=== PATIENT | male | born 1970 | race Caucasian/White ===

== ENCOUNTER 2018-10-18 06:46 | Emergency (ER) | payer SELFPAY ==
--- NOTE | 2019-04-17 10:56 | RT.EKG_ITS ---
APPROVED REPORT test <Conclusion> Sinus rhythm...normal P axis, V-rate 50- 99 Ventricular premature complex...V complex w/ short R-R interval Borderline right axis deviation...QRS axis ( 90, 99)
== END 2018-10-18 07:57 | disposition other institution (70) ==
LOC: ER 07:55
PROVIDERS: PCP Family Medicine
DX: R69 Illness, unspecified (principal)

== ENCOUNTER → 2020-02-29 15:38 | Outpatient (CLI) | payer OTHER, SELFPAY | LOC: PRC 04-11 07:42 → SUR 08-14 12:44 | PROVIDERS: PCP Family Medicine | DX: T71.192A Asphyxiation due to mechanical threat to breathing due to other causes, intentional self-harm, initial encounter (principal) | CPT/HCPCS: 31500; 80053 ==

== ENCOUNTER 2020-06-11 19:38 | Outpatient (CLI) | payer SELFPAY ==
--- NOTE | 2020-12-27 | DI.US_ITS ---
APPROVED REPORT EXAM: Comprehensive 2D, Doppler, and color-flow Echocardiogram Conclusion testing seal Wall motion
== END 2020-06-11 19:40 ==
LOC: DI 19:38
PROVIDERS: PCP Family Medicine
DX: R69 Illness, unspecified (principal)

== ENCOUNTER 2020-07-01 02:08 | Outpatient (CLI) | payer MEDICARE, SELFPAY ==
--- NOTE | 2020-07-16 | DI.MAMMO_ITS ---
EXAM: MG MAMMO DIAGNOSTIC UNI CLINICAL HISTORY: TEST FOR TECH id. TECHNIQUE: Unilateral spot mammographic images were obtained with 3D [employer] and util izing computer aided detection (CAD). COMPARISON: Prior mammograms dating back to , the most recent being . FINDINGS: TEST TEST IMPRESSION: No radiographic evidence of malignancy Appropriate follow-up is . BI-RADS Category 2 - Benign Findings Breast Density - Category A - Almost entirely fatty Breast density Category C or D implies that the patient has dense breast tissue. Dense breast tissue can make it harder to find cancer on a mammogram. Dense breast tissue is also associated with an incr eased risk of breast cancer. This information about the result of the mammogram report was provided to the patient to raise their awareness. Use this report when you speak with the patient about their risks for breast cancer, which includes their family history. At that time, you may recommend additional screening tests (Ultrasoun d or MRI) as these tests may add significant information. A negative radiographic report should not delay biopsy if a dominant or clinically suspicious mass is present. Up to ten percent of cancers are not identified on mammography. A negative report may reinforce clinical impression. Adenosis and dense breasts may obscure an underlying neoplasm. False positive reports average 6 to 10%. Patient will receive a letter notifying them of these results.
== END 2020-07-01 02:09 ==
LOC: DI 08-15 15:18 → LBO 08-15 15:46
PROVIDERS: PCP Family Medicine; Visit Provider Family Medicine
DX: R69 Illness, unspecified (principal)
CPT/HCPCS: 80053

== ENCOUNTER 2021-03-13 08:54 | Outpatient (CLI) | payer MEDICARE, SELFPAY ==
[2021-11-21 07:00] VITALS: RESP 12
[2021-11-21 09:30] VITALS: BP 120/87; PULSE 75; RESP 12; TEMP 36.4; O2SAT 98
[2021-12-05 09:28] VITALS: RESP 18
--- NOTE | 2021-12-09 | DI.US_ITS ---
Exam(s) US OB CERVICAL LENGTH EXAM: US OB CERVICAL LENGTH INDICATION: TEST FOR CX MEASUREMENT. COMPARISON: No exams were available for comparison TECHNIQUE: FINDINGS: IMPRESSION: Unexpected findings as noted above. An unexpected finding is one that is unexpected and non urgent wi th regard to the clinical indication for the examination but will come with a radiologist recommendat ion for follow up.
--- NOTE | 2021-12-26 | DI.US_ITS ---
Exam(s) US OB 2-3 TRIMESTER EXAM: US OB 2-3 TRIMESTER INDICATION: testing in US. COMPARISON: No exams were available for comparison TECHNIQUE: FINDINGS: IMPRESSION: Unexpected Findings as noted above. An unexpected finding is one that is unexpected and non urgent with regard to the clinical indication for the examination but will come with a radiologist recommendation for follow up.
--- NOTE | 2022-01-01 12:45 | DI.RAD_ITS ---
Exam(s) XR ANKLE LT 2V EXAM: XR ANKLE LT 2V CLINICAL HISTORY: TEST FOR UNEXPECTED. TECHNIQUE: 2D digital imaging was performed. COMPARISON: No exams were available for comparison FINDINGS: BONES: No acute fracture is present. No bony destructive lesion is seen. JOINTS: The knee is normally aligned. No joint effusion is seen. SOFT TISSUE: Normal. IMPRESSION: Unremarkable radiographs of the right knee. TEST Unexpected Findings as noted above. An unexpected finding is one that is unexpected and non-urgent wi th regard to the clinical indication for the examination but will come with a radiologist recommendat ion for follow up. DATA REPOSITORY: RADIATION DOSE DELIVERED:
--- NOTE | 2022-01-12 09:30 | DI.MRI_ITS ---
Exam(s) MR ANGIO BRAIN WO EXAM: MR ANGIO BRAIN WO CLINICAL HISTORY: TEST TECHNIQUE: Multiplanar multisequence MRI of the brain was performed. COMPARISON: No exams were available for comparison FINDINGS: VENTRICLES AND EXTRA AXIAL SPACES: Normal in size and morphology for the patient's age. MIDLINE SHIFT: None. CEREBRAL PARENCHYMA: No focus of restricted diffusion to suggest acute infarct. No space-occupying le marvin identified. HEMORRHAGE: None. BRAINSTEM/CEREBELLUM: Normal. CALVARIUM: Normal. VISUALIZED PARANASAL SINUSES/MASTOIDS:Clear. [place]: Normal flow void. PITUITARY GLAND: Unremarkable. OTHER FINDINGS: None. IMPRESSION: Unremarkable MRI of the brain. Test Unexpected findings DATA REPOSITORY:
--- NOTE | 2022-03-20 | DI.CT_ITS ---
Exam(s) CT ABDOMEN PELVIS WO EXAM: CT ABDOMEN PELVIS WO CLINICAL HISTORY: Testing dose TECHNIQUE: COMPARISON: No exams were available for comparison FINDINGS: IMPRESSION: RADIATION DOSE DELIVERED: 72.72mGy.cm Total DLP DATA REPOSITORY: All CT scans at this facility are submitted to the National Radiology Data Registry (NRDR) Dose Index Registry (DIR) with the [employer] (ACR). RADIATION OPTIMIZATION: All CT scans at this facility use at least one of these dose optimization te chniques: automated exposure control; mA and/or kV adjustment per patient size (includes targeted exa ms where dose is matched to clinical indication); or iterative reconstruction.
--- NOTE | 2022-06-16 | DI.US_ITS ---
APPROVED REPORT EXAM: Comprehensive 2D, Doppler, and color-flow Echocardiogram Patient Location: Out-Patient Indications: [employer] Conclusion Mildly dilated left ventricle. Wall thickness is normal. Estimated ejection fraction is 15%. Septa l motion suggest an IVCD. Global hypokinesis Normal right ventricular size. Mild right ventricular hypokinesis Both atria are normal in size Aortic valve is sclerotic. There is no aortic stenosis or regurgitation Mitral annular calcification. Moderate mitral regurgitation Normal tricuspid valve with trace regurgitation. Estimated right ventricular systolic pressure is 13 mmHg Wall motion Left Ventricle Left ventricle is mildly dilated. Left ventricular ejection fraction is severely decreased. There is normal left ventricular wall thickness. There is global hypokinesis of the left ventricle. There is n o ventricular septal defect visualized. LVEF is 15%. Right Ventricle The right ventricle is normal size. Right ventricle is mildly hypokinetic. The RVSP is 13.2 mmHg. Atria The left atrium size is normal. The right atrium size is normal. The interatrial septum is intact wit h no evidence for an atrial septal defect. Aortic Valve The Aortic valve is sclerotic. Number of aortic valve leaflets could not be assessed. There is no aor tic valvular stenosis. No aortic regurgitation is present. Mitral Valve Mild to moderate mitral annular calcification. No evidence of mitral valve stenosis. Moderate mitral regurgitation. Tricuspid Valve The tricuspid valve is normal in structure. There is no tricuspid valve stenosis. Trace tricuspid reg urgitation. Pulmonic Valve The pulmonary valve is normal in structure. There is no pulmonic valvular stenosis. There is no pulmo w[place] valvular regurgitation. Great Vessels The aortic root is normal in size. The ascending aorta is normal in size. The IVC collapses <50% with inspiration. Pericardium There is no pericardial effusion. There is no pleural effusion. 2D Dimensions IVSD d PLAX 0.75 cm M: 0.6-1.2 LV Vol A4C d MOD 124.4 mL LVPW d PLAX 0.67 cm M: 0.6 - 1.2 LA vol/ BSA A2C s A-L 25.7 mL/m2 LVID d PLAX 5.77 cm M: 4.2 - 5.8 LA Area A2C s MOD 17.62 cm2 LVDs 5.35 cm M: 2.5 - 4.0 LV EF A4C MOD 13.5 % Ao Root d 2.97 cm M: 3.1 - 3.7 RA Area A4C 7.76 cm2 RA Vol/ BSA A4C s A-L 7.1 mL/m2 Ao Asc Diam d 2.57 cm M: 2.6 - 3.4 LV EF Teichholz 15.7 % LV Volume Index 63.53 mL/m2 M: 34 - 74 FS 7.15 % M-Mode TAPSE 2.60 cm (M/F) >1.7 LV Diastology MV E' medial 0.050 (>0.07 m/s) MV A Vmax 1.25 (0.4-1.3 m/s) MV E' lateral 0.055 (>0.1 m/s) Aortic Valve LVOT Area 2.17 cm2 AoV Area Vmax 1.82 cm2 LVOT Vmax 1.09 m/s AoV Area/ BSA (Vmax) 0.93 cm2/m2 LVOT Mean Adrien. 0.75 m/s LEIDY Mean Adrien. 1.85 cm2 LVOT Peak Grad 4.7 mmHg LEIDY Mean Adrien. Index 0.95 cm2/m2 LVOT Mean Grad 2.6 mmHg LVOT VTI 0.228 m LVOT Diam s 1.65 cm AoV Vmax 1.30 m/s Velocity Ratio 0.84 AoV Mean Adrien. 0.88 m/s AoV Peak Grad 6.7 mmHg LVOT SV 49.47 mL AoV Mean Grad 3.6 mmHg AoV VTI 0.208 m AoV Area VTI 2.37 cm2 AoV Area/ BSA (VTI) 1.21 cm/m2 Mitral Valve MV VTI 1.840 m MR Vmax 5.50 m/s MV Area VTI 0.29 (4.0-6.0 cm2) MR VTI 2.161 m MR Peak Grad 121.0 mmHg MR Mean Grad 76.2 mmHg MR PISA Radius 0.62 cm MR EROA 0.16 cm2 MR Aliasing Velocity 0.35 m/s MR PISA 2.44 cm2 Tricuspid Valve TR Peak Grad 10.2 mmHg TR Vmax 1.60 m/s RA Pressure 3.00 mmHg RVSP (TR) 13.2 mmHg
--- NOTE | 2022-07-21 | DI.CTLCSR_ITS ---
Exam(s) CT CHEST LUNG CANCER SCREEN EXAM: CT CHEST LUNG CANCER SCREEN CLINICAL HISTORY: TEST CAT1 TECHNIQUE: Imaging Protocol: Axial computed tomography images with coronal and sagittal reformatted images were created and reviewed COMPARISON: No exams were available for comparison FINDINGS: Tracheobronchial tree: Patent where visualized. Mediastinum and Keily: No dominant adenopathy or fluid collection. Pulmonary parenchyma: No consolidation or dominant measurable mass. No architectural distortion. Lung Nodules: None. Pleura: No effusion or pneumothorax. Heart: The heart is not dilated. No coronary artery calcifications are seen. Aorta: Thoracic aorta non-dilated. Upper abdomen: Unremarkable. Bones: Within normal limits. Soft Tissues: Unremarkable. IMPRESSION: Normal low dose CT lung screening Lung RADS Cat 1 - Negative: No nodules and definitely benign nodules Lung-RADS 1.0 CATEGORIES: Category 0 - Prior chest CT exam(s) being located for comparison. Category 1 - Annual screening in 12 months. No nodules or definitely benign nodules. Category 2 - Annual screening in 12 months. Benign appearance. Nodules with low likelihood of becomin g active cancer. Category 3 - 6-month follow-up. Probably benign. Short-term follow-up suggested. Nodules with low lik elihood of becoming active cancer. Category 4A - 3-month follow-up and CT/PET if >8 mm in size. Suspicious finding. Findings which requi re additional testing. Category 4B - Findings which require additional testing and tissue sampling. Category 4X - Category 3 or 4 nodules with additional features or imaging findings that increases the suspicion of malignancy. Modifier S- Potentially clinically significant findings (non lung cancer) RADIATION DOSE DELIVERED: Total DLP DATA REPOSITORY: All CT scans at this facility are submitted to the National Radiology Data Registry (NRDR) Dose Index Registry (DIR) with the [employer] (ACR). RADIATION OPTIMIZATION: All CT scans at this facility use at least one of these dose optimization te chniques: automated exposure control; mA and/or kV adjustment per patient size (includes targeted exa ms where dose is matched to clinical indication); or iterative reconstruction.
--- NOTE | 2022-07-21 09:15 | DI.CTLCSR_ITS ---
Exam(s) CT CHEST LUNG CANCER SCREEN EXAM: CT CHEST LUNG CANCER SCREEN CLINICAL HISTORY: TEST 2 TECHNIQUE: Imaging Protocol: Axial computed tomography images with coronal and sagittal reformatted images were created and reviewed COMPARISON: No exams were available for comparison FINDINGS: Tracheobronchial tree: Patent where visualized. Mediastinum and Keily: No dominant adenopathy or fluid collection. Pulmonary parenchyma: No consolidation or dominant measurable mass. No architectural distortion. Lung Nodules: None. Pleura: No effusion or pneumothorax. Heart: The heart is not dilated. No coronary artery calcifications are seen. Aorta: Thoracic aorta non-dilated. Upper abdomen: Unremarkable. Bones: Within normal limits. Soft Tissues: Unremarkable. IMPRESSION: Normal low dose CT lung screening Lung RADS Cat 2 - Benign Appearance / Behavior: Nodules with a very low likelihood of becoming a clin ically active cancer due to size or lack of growth Lung-RADS 1.0 CATEGORIES: Category 0 - Prior chest CT exam(s) being located for comparison. Category 1 - Annual screening in 12 months. No nodules or definitely benign nodules. Category 2 - Annual screening in 12 months. Benign appearance. Nodules with low likelihood of becomin g active cancer. Category 3 - 6-month follow-up. Probably benign. Short-term follow-up suggested. Nodules with low lik elihood of becoming active cancer. Category 4A - 3-month follow-up and CT/PET if >8 mm in size. Suspicious finding. Findings which requi re additional testing. Category 4B - Findings which require additional testing and tissue sampling. Category 4X - Category 3 or 4 nodules with additional features or imaging findings that increases the suspicion of malignancy. Modifier S- Potentially clinically significant findings (non lung cancer) RADIATION DOSE DELIVERED: Total DLP DATA REPOSITORY: All CT scans at this facility are submitted to the National Radiology Data Registry (NRDR) Dose Index Registry (DIR) with the [employer] (ACR). RADIATION OPTIMIZATION: All CT scans at this facility use at least one of these dose optimization te chniques: automated exposure control; mA and/or kV adjustment per patient size (includes targeted exa ms where dose is matched to clinical indication); or iterative reconstruction.
--- NOTE | 2022-07-21 10:45 | DI.CTLCSR_ITS ---
Exam(s) CT CHEST LUNG CANCER SCREEN EXAM: CT CHEST LUNG CANCER SCREEN CLINICAL HISTORY: Test 3 TECHNIQUE: Imaging Protocol: Axial computed tomography images with coronal and sagittal reformatted images were created and reviewed COMPARISON: No exams were available for comparison FINDINGS: Tracheobronchial tree: Patent where visualized. Mediastinum and Keily: No dominant adenopathy or fluid collection. Pulmonary parenchyma: No consolidation or dominant measurable mass. No architectural distortion. Lung Nodules: None. Pleura: No effusion or pneumothorax. Heart: The heart is not dilated. No coronary artery calcifications are seen. Aorta: Thoracic aorta non-dilated. Upper abdomen: Unremarkable. Bones: Within normal limits. Soft Tissues: Unremarkable. IMPRESSION: Normal low dose CT lung screening Lung RADS Cat 3 - Probably Benign: Probably benign finding(s) - short term follow-up suggested; inclu de nodules with a low likelihood of becoming a clinically active cancer. Lung-RADS 1.0 CATEGORIES: Category 0 - Prior chest CT exam(s) being located for comparison. Category 1 - Annual screening in 12 months. No nodules or definitely benign nodules. Category 2 - Annual screening in 12 months. Benign appearance. Nodules with low likelihood of becomin g active cancer. Category 3 - 6-month follow-up. Probably benign. Short-term follow-up suggested. Nodules with low lik elihood of becoming active cancer. Category 4A - 3-month follow-up and CT/PET if >8 mm in size. Suspicious finding. Findings which requi re additional testing. Category 4B - Findings which require additional testing and tissue sampling. Category 4X - Category 3 or 4 nodules with additional features or imaging findings that increases the suspicion of malignancy. Modifier S- Potentially clinically significant findings (non lung cancer) RADIATION DOSE DELIVERED: Total DLP DATA REPOSITORY: All CT scans at this facility are submitted to the National Radiology Data Registry (NRDR) Dose Index Registry (DIR) with the [employer] (ACR). RADIATION OPTIMIZATION: All CT scans at this facility use at least one of these dose optimization te chniques: automated exposure control; mA and/or kV adjustment per patient size (includes targeted exa ms where dose is matched to clinical indication); or iterative reconstruction.
--- NOTE | 2022-08-24 | DI.RAD_ITS ---
Exam(s) XR ABDOMEN FLAT PLATE EXAM: 2D digital imaging was performed. CLINICAL HISTORY: testing Unexpected findings. COMPARISON: No exams were available for comparison TECHNIQUE: Supine views of the abdomen performed. FINDINGS: BOWEL GAS PATTERN: Nondistended. CALCIFICATIONS: No radiopaque calcifications. OSSEOUS STRUCTURES: Normal for age. OTHER FINDINGS: None. IMPRESSION: 1. Nonobstructive bowel gas pattern. 2. No radiopaque calculi. Unexpected findings DATA REPOSITORY: RADIATION DOSE DELIVERED:
--- NOTE | 2023-04-06 | DI.US_ITS ---
APPROVED REPORT EXAM: Comprehensive 2D, Doppler, and color-flow Echocardiogram Conclusion test Wall motion
--- NOTE | 2023-04-06 08:30 | RT.EKG_ITS ---
APPROVED REPORT Exam: Resting ECG Reason for Exam: testing workflow Patient Location: O Conclusion I have reviewed and interpreted ECG and agree with software generated interpretation.
--- NOTE | 2023-07-27 13:45 | DI.RAD_ITS ---
Exam(s) XR ELBOW LT COMPLETE EXAM: XR ELBOW LT COMPLETE CLINICAL HISTORY: TEST RESULTS. TECHNIQUE: 2D digital imaging was performed. COMPARISON: No exams were available for comparison FINDINGS: 3 views Test 19 IMPRESSION: DATA REPOSITORY: RADIATION DOSE DELIVERED:
--- NOTE | 2023-11-11 08:30 | DI.US_ITS ---
Exam(s) US OB 2-3 TRIMESTER EXAM: US OB 2-3 TRIMESTER CLINICAL HISTORY: . TEST TECHNIQUE: Transabdominal obstetrical ultrasound performed. COMPARISON: No exams were available for comparison FINDINGS: Transabdominal obstetrical ultrasound performed. FINDINGS: Number of fetuses: One. position: Vertex. heart rate: bpm. Placental location: Posterior. No evidence of previa. BIOMETRIC DATA: EFW: grms % Composite Age: EDC: Heart Rate: BPM Amniotic fluid index: Cm. Amount of fluid is within normal limits. TESTING ANATOMICAL SURVEY: Within normal limits. IMPRESSION: 1. Single live intrauterine gestation as above. 2. Normal anatomic survey. Additional imaging needed DATA REPOSITORY:
--- NOTE | 2024-01-26 13:15 | DI.RAD_ITS ---
Exam(s) XR CHEST 2V PA LATERAL EXAM: XR CHEST 2V PA LATERAL CLINICAL HISTORY: TEST FOR UNEXPECTING FINDINGS TECHNIQUE: 2D digital imaging was performed. COMPARISON: No exams were available for comparison NONE FINDINGS: MEDIASTINUM: Normal. HEART: Normal. PULMONARY VASCULATURE: Normal. LUNGS: Clear. PLEURAL SPACE: No pleural effusion or pneumothorax. BONE:Normal. OTHER FINDINGS:Normal. IMPRESSION: No acute pulmonary findings. TEST Unexpected findings DATA REPOSITORY: RADIATION DOSE DELIVERED:
== END 2021-03-13 09:14 ==
LOC: DI 08:59
PROVIDERS: PCP Family Medicine; Visit Provider Family Medicine
DX: A00.1 Cholera due to Vibrio cholerae 01, biovar eltor; A01.03 Typhoid pneumonia; A02.0 Salmonella enteritis; A01.05 Typhoid osteomyelitis